=== PATIENT | male | born 1970 | race Caucasian/White ===

== ENCOUNTER 2017-05-18 17:39 | Inpatient (IN) | payer MEDICARE, OTHER ==
[~2017-05-18] VITALS: Ht 185.4 cm; Wt 123.2 kg
[~2017-05-18 17:39] MED LIST: CEPH250 PO; FISH1000 PO; GABA100C4 PO; METO100T PO; NEPHRO PO; SENS60TA PO; SEVEL800 PO; SIMV40TA PO; SLO-500T2 PO
[2017-05-18 18:38] VITALS: BP 122/87; PULSE 94; RESP 18; TEMP 98; O2SAT 99
[2017-05-18] MEDS ORDERED: SODIUM CHLOR 0.9% 1000 ML INJ 1,000 ML IV ONE (19:01)
[2017-05-18] MEDS ORDERED: LACTULOSE SYRUP 20 GM/30 ML CUP PO PRN (19:15)
[2017-05-18] MEDS ORDERED: SODIUM CHLORIDE 0.9% FLUSH 10 ML FLUSH IV FLUSH PRN (19:15)
[2017-05-18] MEDS ORDERED: ONDANSETRON HCL 4 MG/2 ML VIAL IVP PRN (19:15)
[2017-05-18] MEDS ORDERED: NALOXONE HCL 0.4 MG/ML AMP IV PUSH PRN (19:15)
[2017-05-18] MEDS ORDERED: ceFAZolin 2 GM PREMIX 50 ML IV SCH (19:15)
[2017-05-18] MEDS ORDERED: CUSTODIOL HTK IRR SOLN 2,000 ML IRRIGATION PRN (19:15)
[2017-05-18] MEDS ORDERED: ACETAMINOPHEN 325 MG TAB PO PRN (19:15)
[2017-05-18] MEDS ORDERED: BISACODYL 10 MG SUPP RECTAL PRN (19:15)
[2017-05-18] MEDS ORDERED: SENNOSIDES 8.6 MG TAB PO PRN (19:15)
--- NOTE | 2017-05-18 19:18 | HHI.HP ---
[facility] Service Transplant Medicine Primary Care Physician Harrison Walter MD, PhD Admission Diagnosis End-stage renal disease for kidney transplant Diagnoses: (1) ESRD (end stage renal disease) on dialysis Diagnosis: Principal Chief Complaint: Here for kidney transplant International Travel<30 Days: No Contact w/Intl Traveler<30days: No Known Affected Area: No History of Present Illness Patient is a 46-year-old white male with history of end-stage renal disease due to Alport syndrome getting hemodialysis on Tuesday, Tuesday and Tuesday he received his dialysis today for 4 and a half hours, he did well and denies any recent infections, cough, congestion, any skin breakdowns he has a AV fistula in the left forearm. He denies any chest pains, shortness of breath, he passes small amount of urine. He's been offered the kidney transplant and has accepted the risk associated with the transplant. Review of Systems Constitutional: DENIES: Diaphoretic episodes, Fatigue, Fever, Weight gain, Weight loss, Chills, Dizziness, Change in appetite, Night Sweats Endocrine: DENIES: Heat/cold intolerance, Polydipsia, Polyuria, Polyphagia Eyes: DENIES: Blurred vision, Diplopia, Eye inflammation, Eye pain, Vision loss , Photosensitivity, Double Vision Ears, nose, mouth, throat: COMPLAINS OF: Hearing loss, DENIES: Tinnitus, Vertigo, Nasal discharge, Oral lesions, Throat pain, Hoarseness, Ear Pain, Running Nose, Epistaxis, Sinus Pain, Toothache, Odynophagia Respiratory: DENIES: Apneas, Cough, Snoring, Wheezing, Hemoptysis, Sputum production, Shortness of breath Cardiovascular: DENIES: Chest pain, Palpitations, Syncope, Dyspnea on Exertion , PND, Lower Extremity Edema, Orthopnea, Claudication Gastrointestinal: DENIES: Abdominal pain, Black stools, Bloody stools, Constipation, Diarrhea, Nausea, Vomiting, Difficulty Swallowing, Anorexia Genitourinary: DENIES: Sexual dysfunction, Urinary frequency, Urinary incontinence, Urgency, Hematuria, Dysuria, Nocturia, Penile Discharge, Testicular Pain, Testicular Swelling Musculoskeletal: DENIES: Joint pain, Muscle aches, Stiffness, Joint Swelling, Back pain, Neck pain Integumentary: DENIES: Abnormal pigmentation, Nail changes, Pruritus, Rash Hematologic/lymphatic: DENIES: Bruising, Lymphadenopathy Immunologic/allergic: DENIES: Eczema, Urticaria Neurologic: DENIES: Abnormal gait, Headache, Localized weakness, Paresthesias, Seizures, Speech Problems, Tremor, Poor Balance Psychiatric: DENIES: Anxiety, Confusion, Mood changes, Depression, Hallucinations, Agitation, Suicidal Ideation, Homicidal Ideation, Delusions Past Family Social History Past Medical History Alport syndrome ESRD Hypertension Hyperlipidemia Past Surgical History He has AV fistulas left arm Kidney biopsy Reported Medications Reported Meds & Active Scripts Active Reported Gabapentin 100 Mg Cap 500 Mg PO TUE, TUE, TUE Nephro-Wei Rx (Vitamin B Complex/Vit C/Folic Acid) 1 Cap Tab 1 Cap PO DAILY Slo-Niacin (Niacin) 500 Mg Tab 500 Mg PO DAILY Gabapentin 100 Mg Cap 200 Mg PO TUE, , TUE, TUE Renvela (Sevelamer Carbonate) 800 Mg Tab 3,200 Mg PO TID *TAKE WITH MEALS* Sensipar 60 mg (Cinacalcet Hcl 60 mg) 60 Mg Tab 180 Mg PO DAILY Simvastatin 40 Mg Tab 40 Mg PO HS Fish Oil 1,000 Mg Cap 1,000 Mg PO BID Lopressor (Metoprolol Tartrate) 100 Mg Tab 25 Mg PO TUE, TUE, TUE Allergies: Coded Allergies: No Known Allergies (Verified , 01/31/12) Family History Noncontributory Social History Denies current smoking he used to smoke in the past but quit several years ago Denies any alcohol intake Physical Exam Vital Signs Vital Signs Date Time Temp Pulse Resp B/P (MAP) Pulse Ox O2 Delivery O2 Flow Rate FiO2 05/18/17 18:38 98.0 94 18 122/87 (99) 99 Physical Exam GENERAL: This is a well-nourished, well-developed patient, in no apparent distress. SKIN: No rashes, ecchymoses or lesions. Cool and dry. HEAD: Atraumatic. Normocephalic. No temporal or scalp tenderness. EYES: Pupils equal round and reactive. Extraocular motions intact. No scleral icterus. No injection or drainage. ENT: Nose without bleeding, purulent drainage or septal hematoma. Throat without erythema, tonsillar hypertrophy or exudate. Uvula midline. Airway patent. NECK: Trachea midline. No JVD or lymphadenopathy. Supple, nontender, no meningeal signs. CARDIOVASCULAR: Regular rate and rhythm without murmurs, gallops, or rubs. RESPIRATORY: Clear to auscultation. Breath sounds equal bilaterally. No wheezes , rales, or rhonchi. GASTROINTESTINAL: Abdomen soft, non-tender, nondistended. No hepato-splenomegaly , or palpable masses. No guarding. MUSCULOSKELETAL: Extremities without clubbing, cyanosis, or edema. No joint tenderness, effusion, or edema noted. No calf tenderness. Negative Homans sign bilaterally. A fistula left arm NEUROLOGICAL: Awake and alert. Cranial nerves II through XII intact. Motor and sensory grossly within normal limits. Five out of 5 muscle strength in all muscle groups. Normal speech. Caprini VTE Risk Assessment Caprini VTE Risk Assessment: No/Low Risk (score <= 1) VTE Pharm Contraindication: Caprini Risk Assessment Model Point Value = 1 Point Value = 2 Point Value = 3 Point Value = 5 Age 41-60 Minor surgery BMI > 25 kg/m2 Swollen legs Varicose veins or History of unexplained or recurrent spontaneous Oral contraceptives or hormone replacement Sepsis (< 1 month) Serious lung disease, including pneumonia (< 1 month) Abnormal pulmonary function Acute myocardial infarction Congestive heart failure (< 1 month) History of inflammatory bowel disease Medical patient at bed rest Age 61-74 Arthroscopic surgery Major open surgery (> 45 min) Laparoscopic surgery (> 45 min) Malignancy Confined to bed (> 72 hours) Immobilizing plaster cast Central venous access Age >= 75 History of VTE Family history of VTE Factor V Leiden Prothrombin [id number] Lupus anticoagulant Anticardiolipin antibodies Elevated serum homocysteine Heparin-induced thrombocytopenia Other congenital or acquired thrombophilia Stroke (< 1 month) Elective arthroplasty Hip, pelvis, or leg fracture Acute spinal cord injury (< 1 month) Prophylaxis Regimen Total Risk Factor Score Risk Level Prophylaxis Regimen 0-1 Low Early ambulation 2 Moderate Order ONE of the following: *Sequential Compression Device (SCD) *Heparin 5000 units SQ BID 3-4 Higher Order ONE of the following medications: *Heparin 5000 units SQ TID *Enoxaparin/Lovenox 40 mg SQ daily (WT < 150 kg, CrCl > 30 mL/min) *Enoxaparin/Lovenox 30 mg SQ daily (WT < 150 kg, CrCl > 10-29 mL/min) *Enoxaparin/Lovenox 30 mg SQ BID (WT < 150 kg, CrCl > 30 mL/min) AND/OR *Sequential Compression Device (SCD) 5 or more Highest Order ONE of the following medications: *Heparin 5000 units SQ TID (Preferred with Epidurals) *Enoxaparin/Lovenox 40 mg SQ daily (WT < 150 kg, CrCl > 30 mL/min) *Enoxaparin/Lovenox 30 mg SQ daily (WT < 150 kg, CrCl > 10-29 mL/min) *Enoxaparin/Lovenox 30 mg SQ BID (WT < 150 kg, CrCl > 30 mL/min) AND *Sequential Compression Device (SCD) Assessment and Plan Problem List: (1) ESRD (end stage renal disease) on dialysis ICD Codes: N18.6 - End stage renal disease; Z99.2 - Dependence on renal dialysis Status: Acute Plan: He is here for kidney transplant offer B positive pool He has been cleared for transplant and listed actively for several years He has no acute infections or contraindications Is waiting for final crossmatch and biopsy of the donor kidney I discuss again the process of transplant surgical aspect, posttransplant follow -up and he stated he is ready I will do CBC and other basic labs chest x-ray, order Thymoglobulin, Solu- Medrol for induction, He'll receive cefazolin on-call to OR He'll get 1 dose of CellCept 1000 mg tonight. Physician Certification 2 Midnight Certification Type: Admission for Inpatient Services Order for Inpatient Services The services are ordered in accordance with Medicare regulations or non- Medicare payer requirements, as applicable. In the case of services not specified as inpatient-only, they are appropriately provided as inpatient services in accordance with the 2-midnight benchmark. Estimated LOS (days): 5 5 days is the estimated time the patient will need to remain in the hospital, assuming treatment plan goals are met and no additional complications. Post-Hospital Plan: Home Gilmer Juarez MD May 18, 2017 19:18
[2017-05-18 19:30] VITALS: BP 150/89; PULSE 89; RESP 18; TEMP 98.4; O2SAT 98
[2017-05-18] MEDS ORDERED: MYCOPHENOLATE MOFETIL 500 MG TAB PO SCH (20:00)
[2017-05-18 20:25] LABS: ANION GAP 11 MEQ/L (5-15); AST (GOT) 11 U/L (15-37); BICARBONATE 21.6 MEQ/L (21.0-32.0); BLOOD UREA NITROGEN 34 MG/DL (7-18); CHLORIDE 102 MEQ/L (98-107); GLOMERULAR FILTRATION RATE 5 ML/MIN (>89); POTASSIUM 5.3 MEQ/L (3.5-5.1); SODIUM (NA) 135 MEQ/L (136-145)
[2017-05-18 20:26] LABS: ALT (GPT) 23 U/L (12-78)
[2017-05-18 20:28] LABS: ALKALINE PHOSPHATASE 173 U/L (45-117); TOTAL BILIRUBIN ADULT 0.5 MG/DL (0.2-1.0)
[2017-05-18 20:31] LABS: APTT (PATIENT) 26.4 SEC (24.3-30.1); PROTHROMBIN TIME - PATIENT 11.6 SEC (9.8-11.6)
[2017-05-18 20:38] LABS: AUTOMATED NEUTROPHIL # 6.8 TH/MM3 (1.8-7.7); BASOPHIL # 0.1 TH/MM3 (0-0.2); BASOPHIL % 0.5 % (0.0-2.0); EOSINOPHIL # 0.1 TH/MM3 (0-0.4); HEMATOCRIT 49.9 % (39.0-51.0); HEMO FLAGS DIFF FINAL; LYMPH % 18.5 % (9.0-44.0); LYMPHOCYTE # 1.9 TH/MM3 (1.0-4.8); MEAN CELL VOLUME 95.9 FL (80.0-100.0); MEAN CORPUSCULAR HEMOGLOBIN 31.1 PG (27.0-34.0); MEAN CORPUSCULAR HGB CONC 32.4 % (32.0-36.0); MONO % 12.1 % (0.0-8.0); NEUT % 67.9 % (16.0-70.0); PLATELET COUNT 150 TH/MM3 (150-450); RED BLOOD COUNT 5.21 MIL/MM3 (4.50-5.90); RED CELL DISTRIBUTION WIDTH 15.4 % (11.6-17.2); WHITE BLOOD COUNT 10.1 TH/MM3 (4.0-11.0)
--- NOTE | 2017-05-18 20:38 | RADRPT ---
EXAM DATE/TIME: 05/18/2017 19:59 [facility] COMPARISON: CHEST PA & LAT, February 24, 2012, 13:05. INDICATIONS : Evaluate for pneumothorax, pneumonia, or other communicable disease. MEDICAL HISTORY : None. SURGICAL HISTORY : None. ENCOUNTER: Initial ACUITY: 1 day PAIN SCORE: 0/10 LOCATION: Bilateral chest FINDINGS: PA and lateral views of the chest demonstrate the lungs to be symmetrically aerated without evidence of mass, infiltrate or effusion. The cardiomediastinal contours are unremarkable. Osseous structure s are intact. CONCLUSION: No acute disease. Dewayne Fraser MD on May 18, 2017 at 20:36 Board Certified Radiologist. This report was verified electronically.
[2017-05-18] MEDS: DOCUSATE SODIUM 50 MG/SENNA 8.6 MG TAB PO SCH (21:22)
[2017-05-18] MEDS: SODIUM CHLORIDE 0.9% FLUSH 10 ML FLUSH IV FLUSH SCH (21:22)
[2017-05-18 23:00] VITALS: BP 164/104; PULSE 86; RESP 17; TEMP 97.9; O2SAT 96
[2017-05-18] MEDS ORDERED: OMEP20TA PO (23:00)
[2017-05-18] MEDS ORDERED: MIDO10TA PO (23:02)
[2017-05-18] MEDS ORDERED: MELA5TAB15 PO (23:03)
[2017-05-18] MEDS ORDERED: DOCU100C PO (23:03)
[2017-05-18] MEDS ORDERED: SUCR5CHW CHEW (23:05)
[2017-05-18] MEDS ORDERED: RENATAB6 PO (23:06)
[2017-05-18] MEDS ORDERED: PROP10TA6 PO (23:06)
[2017-05-18] MEDS ORDERED: SODI650T PO (23:07)
[2017-05-18 23:30] VITALS: BP 130/58
[2017-05-19] VITALS (9 sets, daily range): BP systolic 130–150; BP diastolic 78–89; PULSE 79–96; RESP 16–22; TEMP 98–98.5; O2SAT 94–98
[2017-05-19] MEDS: ZOLPIDEM TARTRATE 5 MG TAB PO PRN (01:45)
[2017-05-19] MEDS ORDERED: HEPARIN SODIUM - SQ 10,000 UNITS/ML VIAL ONE ×2 (07:14→10:08)
[2017-05-19] MEDS ORDERED: diphenhydrAMINE HCL 50 MG/ML VIAL ONE (07:15)
[2017-05-19] MEDS ORDERED: LIDOCAINE HCL 2% 50 ML VIAL ONE (07:16)
[2017-05-19] MEDS ORDERED: BUPIVACAINE HCL PF 0.5% 30 ML VIAL ONE (07:17)
[2017-05-19] MEDS ORDERED: MORPHINE SULFATE 4 MG/ML INJ IV ONE (08:54)
[2017-05-19] MEDS ORDERED: ONDANSETRON HCL 4 MG/2 ML VIAL IV PUSH ONE (08:54)
[2017-05-19] MEDS ORDERED: ROCURONIUM INJ 50 MG/5 ML SYRINGE IV PUSH ONE (08:54)
[2017-05-19] MEDS ORDERED: PROPOFOL 200 MG/20 ML AMP IV ONE (08:54)
[2017-05-19] MEDS ORDERED: GLYCOPYRROLATE 1 MG/5 ML SYRINGE IV PUSH ONE (08:54)
[2017-05-19] MEDS ORDERED: LIDOCAINE HCL 1% PF 5 ML AMPULE OTHER ONE (08:54)
[2017-05-19] MEDS ORDERED: NEOSTIGMINE 3 MG/3 ML SYR IV ONE (08:54)
[2017-05-19] MEDS: DOCUSATE SODIUM 50 MG/SENNA 8.6 MG TAB PO SCH ×2 (09:00→22:20)
[2017-05-19] MEDS ORDERED: FUROSEMIDE 20 MG/2 ML VIAL ONE (09:07)
[2017-05-19] MEDS ORDERED: DOPamine INJ PREMIX 500 ML ONE (09:07)
[2017-05-19] MEDS ORDERED: methylPREDNISolone SOD SUCC 1000 MG/16 ML VIAL ONE (09:10)
[2017-05-19] MEDS ORDERED: FUROSEMIDE 100 MG/10 ML VIAL ONE (09:10)
[2017-05-19] MEDS ORDERED: MANNITOL INJ 50 ML ONE (09:11)
[2017-05-19] MEDS ORDERED: ALBUMIN HUMAN 5% 12.5 GM/250 ML BOTTLE IV ONE (09:28)
[2017-05-19] MEDS ORDERED: ANTITHYMOCYTE GLOB(RABBIT) INJ 150 MG in SODIUM CHLORID 0.9% 500 ML INJ 500 ML IV SCH (10:00)
[2017-05-19] MEDS ORDERED: ceFAZolin INJ 1,000 MG VIAL IRRIGATION ONE (11:35)
[2017-05-19] MEDS ORDERED: DO NOT ADM ANY ANTICOAGULANT DRUGS PRN (13:05)
[2017-05-19] MEDS ORDERED: MORPHINE SULFATE 30 MG/30 ML PCA IV SCH (13:15)
[2017-05-19] MEDS ORDERED: diphenhydrAMINE HCL 25 MG CAP PO PRN ×3 (13:15→16:30)
[2017-05-19] MEDS ORDERED: ONDANSETRON HCL 4 MG/2 ML VIAL IV PRN (13:15)
[2017-05-19] MEDS ORDERED: RESP: ALBUTEROL 2.5 MG/IPRATROPIUM 0.5 MG NEB (PRN) INH (13:15)
[2017-05-19] MEDS ORDERED: diphenhydrAMINE HCL 50 MG/ML VIAL IV PRN (13:15)
[2017-05-19] MEDS ORDERED: diphenhydrAMINE HCL 50 MG/ML VIAL IV PUSH PRN (13:15)
[2017-05-19] MEDS ORDERED: ONDANSETRON INJ 8 MG in DEXTROSE 5% IN WATER INJ 50 ML IV PRN ×2 (13:15)
[2017-05-19] MEDS ORDERED: OXYBUTYNIN CHLORIDE 5 MG TAB PO PRN (13:15)
[2017-05-19] MEDS ORDERED: NALOXONE HCL 0.4 MG/ML AMP IV PUSH PRN (13:15)
[2017-05-19] MEDS ORDERED: LABETALOL HCL 100 MG/20 ML VIAL IV PUSH PRN (13:15)
[2017-05-19] MEDS ORDERED: *MEPERIDINE 25 MG INJ VIAL PERIprocedural Use ONLY ONE (13:23)
[2017-05-19] MEDS ORDERED: *LABETALOL HCL 100 MG/20 ML VIAL PERIprocedural Use ONLY ONE (13:23)
[2017-05-19] MEDS ORDERED: *RESP: ALBUTEROL 2.5 MG/3 ML NEB (PRN) PERIprocedural Use ONLY NEB ONE (13:26)
[2017-05-19] MEDS: SODIUM CHLORIDE 0.9% FLUSH 10 ML FLUSH IV FLUSH SCH ×2 (13:49→21:00)
[2017-05-19] MEDS ORDERED: LABETALOL HCL 20 MG/4 ML VIAL IV PRN (14:15)
[2017-05-19] MEDS ORDERED: SODIUM CHLOR 0.9% 1000 ML INJ 1,000 ML IV SCH (14:15)
--- NOTE | 2017-05-19 14:18 | RADRPT ---
EXAM DATE/TIME: 05/19/2017 13:45 [facility] COMPARISON: CHEST PA & LAT, May 18, 2017, 19:59. INDICATIONS : Line placement. MEDICAL HISTORY : None. SURGICAL HISTORY : None. ENCOUNTER: Subsequent ACUITY: 1 day PAIN SCORE: Non-responsive. LOCATION: Bilateral chest FINDINGS: A single view of the chest demonstrates right central line in superior vena cava. Cardiomegaly. Basil ar and perihilar airspace disease. No significant effusion. No pneumothorax. CONCLUSION: 1. Right central line in superior vena cava without pneumothorax. Cardiomegaly with mild bilateral ai r space disease and dependent atelectasis. No significant effusion. Ignacio Mcdaniel MD on May 19, 2017 at 14:16 Board Certified Radiologist. This report was verified electronically.
[2017-05-19] MEDS ORDERED: THYMOGLOBULIN ANAPYLAXIS KIT MISC XX PRN (14:30)
--- NOTE | 2017-05-19 14:38 | PD.OP ---
Operative Report Date of Surgery: May 19, 2017 Preoperative Diagnosis: (1) ESRD (end stage renal disease) on dialysis Postoperative Diagnosis: (1) Transplant recipient Procedure: kidney transplant Anesthesia: GET Surgeon: Gio Bradshaw Head Teacher(s): Dewayne Rainey MD Operation and Findings: PREOPERATIVE DIAGNOSIS: End-stage renal disease and desire for renal transplant. POSTOPERATIVE DIAGNOSIS: Renal Transplant donor to right iliac fossa OPERATION PERFORMED: 1. Renal transplant to the right iliac fossa 2. Back bench preparation of the donor graft. 3. Placement of ureteral stent. 4. Back bench venous reconstruction of renal allograft INDICATIONS: Mr. Gonzales is a 46 year-old who has end stage renal disease due to Alport's and wishes to have a kidney transplant. He has been on HD for many years with minimum UOP. He was thoroughly evaluated in our clinic and was found to be an adequate candidate for transplant surgery. The patient understood his risks and agrees to undergo the operation and required usp immunosuppression medication. PROCEDURE: After informed consent was obtained from the patient prior to surgery and an increased risk PHS form was signed, and the ABO was reviewed via primary source times two for each the recipient and donor prior to surgery today , the recipient was brought into the OR and safely placed under general endotracheal anesthesia after the debriefing was performed. The ABO verification form was in the room with the patient and the renal allograft. The [employer] file was checked and the donor ABO verified X 2 and recorded onto the ABO form with the Candidate ABO verified X 2 in EPIC and recorded on the ABO verification form. The candidate's name was seen on the match run in [employer]Net. The donor blood type was B and the recipient blood type B. As the anesthesia service was preparing the patient, I prepared the renal allograft on the back table by removing all extraneous connective tissue. There were two arteries on a common Carrel Cuff, single vein and single ureter of sufficient length. Since this was a right kidney, the cephalad and caudal cava was stabled. The kidney was stored in sterile ice with preservative solution and covered with sterile towel. The patient had a Barrios catheter placed sterilely, and the abdomen was prepped and draped in the usual sterile fashion. We then did our standard surgical time out, reviewing the patient, allergies, antibiotics, operation to be performed, immunosuppression medications and ABO of the donor and recipient. All agreed and we proceeded. The anesthesia service acknowledged the administration of the IV Solumedrol 250 mg and Thymoglobulin infusiton was begun. We then made the right lower quadrant oblique incision from an area about two centimeters medial to the anterior iliac spine to the pubic symphysis. We were able to go through the skin, subcutaneous tissue, fascia, and into the right retroperitoneal space. We were able to stay out of the peritoneum throughout the entire operation. We kept the cord structures mobilized out of harm's way. We spared the epigastric vessels. We had excellent exposure of the external iliac artery and vein and carefully dissected these free of the nerve, keeping this lateral and out of harm's way. The vessels felt of very good caliber, and there was no obvious abnormality in the vein or the artery. We gave the patient 2,000 units of intravenous heparin, allowed this to circulate for three minutes. We used a Satinsky clamp on the iliac vein and opened the vein with the 11-blade, Hendrix scissors, and Hepflush. We anastomosed the donor renal vein to the recipient right external iliac vein using 5-0 Prolene in our four-quadrant standard technique. When this venous anastomosis was completed, we went ahead and placed a bull-dog vascular clamp on the proximal and distal right external iliac artery, opened into the iliac artery with the 11-blade. Tonotomy scissors were used to remove a bit of sidewall from the artery, so we had a nice opening of the anterior artery wall to accept the renal artery. Then we used 6-0 Prolene, placing a cephalad stitch , and then we were able to anastomose the arteries under direct visualization in a continuous open fashion. When the arterial anastomosis was complete and tied, we went ahead and placed gentle vascular bull-dog clamps on the renal artery and renal vein proper, where we removed first the iliac vein clamps and allowed for flow across the venous anastomosis, and there was with excellent hemostasis. We then allowed for the distal artery to open. The anastomotic area opened nicely, signifying no technical issues. We then allowed for forward flow from the artery down the leg. There was excellent flow, again with no need for any suture repair across the anastomosis. We then removed the clamps from the renal artery and vein proper, allowed for flow into and out of the kidney, placed warm irrigation all around the kidney to allow it to go ahead and vasodilate nicely, and there was no need for any suture repairs. Hemostasis was obtained by the use of clips or ties as necessary. Electrocautery was used on the capsule as necessary. The kidney pinked up nicely. The patient was given our standard mannitol 12.5 gm as well as Lasix 100 mg IV and the second dose of Solumedrol 250 mg IV prior to reperfusion of the allograft. He tolerated this well. We then went ahead and placed the kidney into the right OR left iliac fossa. It laid nicely and had good color. We then repositioned our Bookwalter retractor and had good exposure of the bladder. The antibiotic irrigant was flushed into the bladder. The bladder distended very nicely into our field. We were able to safely enter into the bladder, place our stay sutures of 3-0 silk, and then went ahead and allowed for the fluid to empty out of the bladder. We then made sure the ureter laid in its correct position. We opened opposite its blood supply with the tenotomy scissors. We shortened it to the appropriate length and then we did our standard jeannette-ureterocystotomy using 5-0 PDS suture in a running technique. We did place a ureteral stent into the transplant ureter into the collecting system and it laid nicely and then into the bladder. When this was completed we placed two Lembert type sutures of 5-0 PDS. We tied these over a right angle so as not to obstruct. We had good hemostasis. We irrigated again with antibiotic solution. Again the kidney laid nicely in the right OR left iliac fossa. The vessels were laying nicely, with no signs of any obstruction either inflow or outflow. We went ahead and did the count as we prepared to close the fascia. The count was correct. We went ahead and closed the fascia with running #1 PDS suture starting from each end of the wound and tying in the middle. We used some 3-0 Vicryl to reapproximate Bentley's in an interrupted fashion. We then used surgical nacho to approximate the skin. We had final instrument and sponge counts correct times two. Our warm ischemia time was about 48 minutes. The cold time was about 15 hours and 50 minutes, most of that on the pulsatile pump. It should be noted that I was scrubbed during the entire operation as was Dr. Rainey as automobile mechanic assistant. ESTIMATED BLOOD LOSS: Minimal, less than 100 mL. BLOOD TRANSFUSIONS: 500 cc 5% albumin SPECIMENS: None. FLUIDS: Approximately 3.2 liters of fluid. COMPLICATIONS: None. Gio Bradshaw MD May 19, 2017 14:38
[2017-05-19 14:40] LABS: AUTOMATED NEUTROPHIL # 11.2 TH/MM3 (1.8-7.7); BASOPHIL # 0.1 TH/MM3 (0-0.2); HEMATOCRIT 44.2 % (39.0-51.0); HEMO FLAGS DIFF FINAL; LYMPH % 0.4 % (9.0-44.0); LYMPHOCYTE # 0.1 TH/MM3 (1.0-4.8); MEAN CELL VOLUME 96.9 FL (80.0-100.0); MEAN CORPUSCULAR HEMOGLOBIN 30.7 PG (27.0-34.0); MEAN CORPUSCULAR HGB CONC 31.7 % (32.0-36.0); MONO % 2.8 % (0.0-8.0); NEUT % 95.8 % (16.0-70.0); PLATELET COUNT 100 TH/MM3 (150-450); RED BLOOD COUNT 4.56 MIL/MM3 (4.50-5.90); RED CELL DISTRIBUTION WIDTH 15.5 % (11.6-17.2); WHITE BLOOD COUNT 11.7 TH/MM3 (4.0-11.0)
--- NOTE | 2017-05-19 14:50 | HHI.NPPN ---
Subjective History of Present Illness 46 year old with ESRD admitted for Kidney Transplant Interval History kidney Transplant 05/19/17 Additional Remarks seen PACU Objective Data Data 05/19/17 05/20/17 19:00 07:00 Intake Total 4270 ml Output Total 110 ml Balance 4160 ml IV Total 570 ml Other 3700 ml Output Urine Total 10 ml Estimated Blood Loss 100 ml Vital Signs Date Time Temp Pulse Resp B/P (MAP) Pulse Ox O2 Delivery O2 Flow Rate FiO2 05/19/17 14:00 80 22 141/77 (98) 94 Nasal Cannula 5 05/19/17 13:45 81 21 147/75 (99) 93 Nasal Cannula 5 05/19/17 13:30 75 18 142/77 (98) 92 Nasal Cannula 5 05/19/17 13:15 87 21 157/91 (113) 95 Nasal Cannula 5 05/19/17 13:00 98.3 87 17 143/85 (104) 91 Simple Mask 10 05/19/17 07:15 98.3 79 16 149/88 (108) 96 05/19/17 03:45 98.0 80 18 150/89 (109) 98 05/18/17 23:30 130/58 (82) 05/18/17 23:00 97.9 86 17 164/104 (124) 96 05/18/17 19:30 98.4 89 18 150/89 (109) 98 05/18/17 18:38 98.0 94 18 122/87 (99) 99 -: 05/18/17194805/18/171948 Physical Exam General Appearance: Well Developed, Well Nourished Neck Neck Exam: Neck Supple Pulmonary Resp Exam: Clear Bilaterally, Breath Sounds Equal Cardiology CV Exam: Regular, Normal Sinus Rhythm Gastrointestinal/Abdomen GI Exam: Soft GI Remarks inciaion covered with dressing rt lower abdomen Genitourinary Exam: Sediment Remarks blood tinged urine Integumentary Skin Exam: Clear Extremeties Extremities Exam: No Edema Neurologic Neuro Exam: Sedated Assessment/Plan Problem List: (1) Transplant recipient ICD Codes: Z94.89 - Other transplanted organ and tissue status Plan: he received SoluMedrol and Thymoglobulin continue with Thymoglobulin Prograf to start tomorrow on CellCept continue to observe for recovery follow labs UOP minimal BP stable will follow as use PRN medication if a need arise 1630 [facility] reported K 6.9, post transplant, treated with 1 amp NaHCO3 and Kayexalate I made dialysis nurse aware, he may need dialysis if repeat K is high. Which is going to be at 5 PM. 1840 Seen during dialysis UF minimal 0 K bath Gilmer Juarez MD May 19, 2017 14:49
[2017-05-19] MEDS: DEXT 5%-NACL 0.45% 1000 ML INJ 1,000 ML IV SCH (15:00)
[2017-05-19 15:11] LABS: BICARBONATE 21.6 MEQ/L (21.0-32.0); MAGNESIUM 1.9 MG/DL (1.5-2.5)
[2017-05-19] MEDS ORDERED: HYDROCORTISONE SOD SUCCINATE 100 MG VIAL ONE (15:36)
[2017-05-19] MEDS: SODIUM CHLOR 0.45% 1000 ML INJ 1,000 ML IV SCH (15:39)
[2017-05-19 16:02] LABS: POTASSIUM 6.9 MEQ/L (3.5-5.1)
[2017-05-19] MEDS ORDERED: SODIUM POLYSTYRENE SULFONATE SUSP 15 GM/60 ML CUP PO STA (16:08)
--- NOTE | 2017-05-19 16:13 | RADRPT ---
EXAM DATE/TIME: 05/19/2017 14:43 [facility] COMPARISON: No previous studies available for comparison. INDICATIONS : Post transplant, two renal arteries. MEDICAL HISTORY : Hypertension. ESRD. Dialysis. Alport syndrome. Dialysis. SURGICAL HISTORY : Left arm AV fistula. ENCOUNTER: Initial ACUITY: 1 day PAIN SCORE: Nonresponsive. LOCATION: Right lower quadrant MEASUREMENTS: TRANSPLANT KIDNEY: 11.5 x 6.3 x 6.2 cm LOCATION: Right lower quadrant. ARCUATE ARTERIES RESISTIVE INDEX: Upper - 0.56 Mid - 0.57 Lower - 0.64 MAIN RENAL ARTERY VELOCITY: (cm/sec): 41.0 cm/s upper pole artery. 61.7 cm/s lower pole artery MAIN RENAL VEIN: Patent EXTERNAL ILIAC ARTERY VELOCITY (cm/sec): 82.3 cm/s * NORMAL DOPPLER FINDINGS Arcuate arteries - RI = 0.6 - 0.8 Renal artery = under 200 cm/sec Renal vein = May be monophasic with continuous flow or demonstrate some pulsatility with cardiac cycl e FINDINGS: TRANSPLANT KIDNEY: Normal cortical thickness and echotexture. No hydronephrosis, stone, or mass. No peritransplant flu id collection. URINARY BLADDER: Within normal limits given the degree of distension. CONCLUSION: 1. Normal sonographic appearance of transplant kidney. Ignacio Mcdaniel MD on May 19, 2017 at 16:10 Board Certified Radiologist. This report was verified electronically.
[2017-05-19] MEDS ORDERED: SODIUM BICARBONATE 8.4% INJ 50 MEQ/50 ML SYR IV PUSH STA (16:14)
[2017-05-19] MEDS ORDERED: SODIUM CHLOR 0.9% 1000 ML INJ 1,000 ML IV PRN (16:29)
[2017-05-19] MEDS ORDERED: SODIUM CHLOR 0.9% 1000 ML INJ 1,000 ML OTHER PRN ×2 (16:29)
[2017-05-19] MEDS ORDERED: cloNIDine HCL 0.1 MG TAB PO PRN (16:30)
[2017-05-19] MEDS ORDERED: NITROGLYCERIN 0.4 MG SL 25 TABS/BTL SL PRN (16:30)
[2017-05-19] MEDS ORDERED: SODIUM CHLORIDE 0.9% FLUSH 10 ML FLUSH IV FLUSH PRN (16:30)
[2017-05-19] MEDS ORDERED: FUROSEMIDE 100 MG/10 ML VIAL IV PUSH ONE (16:30)
[2017-05-19] MEDS ORDERED: GELATIN 12 MM/7 MM FOAM TOP PRN (16:30)
[2017-05-19] MEDS ORDERED: MANNITOL 12.5 GM/50 ML VIAL IV PRN (16:30)
[2017-05-19] MEDS ORDERED: ACETAMINOPHEN 325 MG TAB PO PRN (16:30)
[2017-05-19] MEDS ORDERED: ALBUMIN HUMAN 25% 25 GM/100 ML BAGP IV PRN (16:30)
[2017-05-19] MEDS ORDERED: ONDANSETRON HCL 4 MG/2 ML VIAL IV PUSH PRN (16:30)
[2017-05-19] MEDS ORDERED: CALCIUM GLUCONATE 10% 1 GM/10 ML VIAL IV PUSH ONE (16:45)
[2017-05-19] MEDS ORDERED: DEXTROSE 50% IN WATER 50 ML VIAL(D50) IV PUSH ONE (16:45)
[2017-05-19] MEDS ORDERED: INSULIN HUMAN REGULAR 1,000 UNITS/10 ML VIAL IV PUSH ONE (16:45)
--- NOTE | 2017-05-19 17:23 | EKG ---
Date Performed: 05/18/2017 Time Performed: 21:52:10 PTAGE: 46 years EKG: Sinus rhythm Normal ECG PREVIOUS TRACING : 06/10/2011 10.21 Compared to prior tracing no significant change DOCTOR: Rajendra Mckee Interpretating Date/Time 05/19/2017 17:22:06
[2017-05-19] MEDS ORDERED: DEXTROSE 50% IN WATER 50 ML SYRINGE IV PUSH ONE (17:30)
--- NOTE | 2017-05-19 17:35 | HHI.PR ---
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 Objective Vital Signs Date Time Temp Pulse Resp B/P (MAP) Pulse Ox O2 Delivery O2 Flow Rate FiO2 05/19/17 15:46 95 Nasal Cannula 2.00 05/19/17 15:38 15 05/19/17 15:15 98.5 84 17 142/86 (104) 96 Nasal Cannula 4 05/19/17 15:00 80 19 146/79 (101) 96 Nasal Cannula 4 05/19/17 14:45 83 20 142/80 (100) 96 Nasal Cannula 4 05/19/17 14:30 75 19 140/79 (99) 96 Nasal Cannula 4 05/19/17 14:15 81 22 135/74 (94) 96 Nasal Cannula 4 05/19/17 14:00 80 22 141/77 (98) 94 Nasal Cannula 5 05/19/17 13:45 81 21 147/75 (99) 93 Nasal Cannula 5 05/19/17 13:30 75 18 142/77 (98) 92 Nasal Cannula 5 05/19/17 13:15 87 21 157/91 (113) 95 Nasal Cannula 5 05/19/17 13:00 98.3 87 17 143/85 (104) 91 Simple Mask 10 05/19/17 07:15 98.3 79 16 149/88 (108) 96 05/19/17 03:45 98.0 80 18 150/89 (109) 98 05/18/17 23:30 130/58 (82) 05/18/17 23:00 97.9 86 17 164/104 (124) 96 05/18/17 19:30 98.4 89 18 150/89 (109) 98 05/18/17 18:38 98.0 94 18 122/87 (99) 99 I/O 05/18/17 05/18/17 05/18/17 05/19/17 05/19/17 05/19/17 07:00 15:00 23:00 07:00 15:00 23:00 Intake Total 240 ml 4350 ml Output Total 420 ml Balance 240 ml 3930 ml Intake Oral 240 ml IV Total 650 ml Other 3700 ml Output Urine Total 320 ml Estimated Blood Loss 100 ml Result Diagram: 05/19/17 1421 05/19/17 1421 Imaging Transplant duplex US good CXR w CL in place, no PTX Other Results repeat K pending Objective Remarks small volume renal graft output Medications and IVs NS at 40 cc/hr and urine output replacement Q1hr Assessment and Plan Assessment and Plan hemodynamically stable NOS, but hyperkalemia Kayexalate 30 gms and bicarb 50 meq given, repeat K pending Dr. Juarez is following repeat K for possible HD tonight. Patient runs a high K at baseline, but this is much higher for uncertain reason as no blood transfusion Physician Attestation Venkat Bradshaw 17:20 Gio Bradshaw MD May 19, 2017 17:35
[2017-05-19] MEDS: MYCOPHENOLATE MOFETIL 500 MG TAB PO SCH (17:58)
[2017-05-19] MEDS: PCA - TOTAL MG MORPHINE DELIVERED PER SHIFT IV SCH (22:00)
[2017-05-19] MEDS: NYSTATIN SUSP 500,000 U/5 ML CUP SWISH-SWAL SCH (22:19)
[2017-05-20] VITALS (12 sets, daily range): BP systolic 135–149; BP diastolic 69–86; PULSE 16–83; RESP 16–18; TEMP 97.6–98.5; O2SAT 93–96
[2017-05-20] MEDS: ZOLPIDEM TARTRATE 5 MG TAB PO PRN ×2 (00:09→22:09)
[2017-05-20] MEDS ORDERED: BUMETANIDE INJ 1 MG/4 ML VIAL IV PUSH ONE (00:30)
[2017-05-20 05:11] LABS: AUTOMATED NEUTROPHIL # 10.4 TH/MM3 (1.8-7.7); BASOPHIL % 0.2 % (0.0-2.0); HEMATOCRIT 40.1 % (39.0-51.0); LYMPH % 0.8 % (9.0-44.0); LYMPHOCYTE # 0.1 TH/MM3 (1.0-4.8); MEAN CELL VOLUME 96.7 FL (80.0-100.0); MEAN CORPUSCULAR HEMOGLOBIN 30.9 PG (27.0-34.0); MEAN CORPUSCULAR HGB CONC 31.9 % (32.0-36.0); MONO % 6.5 % (0.0-8.0); NEUT % 92.5 % (16.0-70.0); PLATELET COUNT 119 TH/MM3 (150-450); RED BLOOD COUNT 4.14 MIL/MM3 (4.50-5.90); RED CELL DISTRIBUTION WIDTH 15.6 % (11.6-17.2); WHITE BLOOD COUNT 11.2 TH/MM3 (4.0-11.0)
[2017-05-20 05:13] LABS: BICARBONATE 27.3 MEQ/L (21.0-32.0); HEMO FLAGS AUTO DIFF; MAGNESIUM 1.9 MG/DL (1.5-2.5); POTASSIUM 5.2 MEQ/L (3.5-5.1)
[2017-05-20] MEDS: PCA - TOTAL MG MORPHINE DELIVERED PER SHIFT IV SCH ×3 (05:29→22:00)
[2017-05-20] MEDS: MYCOPHENOLATE MOFETIL 500 MG TAB PO SCH ×2 (05:40→18:27)
[2017-05-20 06:51] LABS: PLATELET ESTIMATE SMEAR LOW (NORMAL); PLATELET MORPHOLOGY NORMAL (NORMAL); SCAN/DIFF AUTO DIFF CONFIRMED
[2017-05-20] MEDS ORDERED: TACROLIMUS 1 MG CAP PO SCH (08:00)
[2017-05-20] MEDS ORDERED: SODIUM POLYSTYRENE SULFONATE SUSP 15 GM/60 ML CUP PO ONE (09:00)
[2017-05-20] MEDS: FLUTICASONE PROPIONATE 50 MCG/ACT 16 GM NASAL SPRAY NASAL SCH ×2 (09:00→21:01)
[2017-05-20] MEDS: SODIUM CHLOR 0.45% 1000 ML INJ 1,000 ML IV SCH (09:04)
[2017-05-20] MEDS: DEXT 5%-NACL 0.45% 1000 ML INJ 1,000 ML IV SCH (09:06)
--- NOTE | 2017-05-20 09:13 | HHI.PR ---
Subjective Remarks comfortable with [employer] post-transplant Very alert and without complaints except minor bladder spasm with winter. He was instructed he can ask for medications to help with that, but he needs to tell nurse. Objective Vital Signs Date Time Temp Pulse Resp B/P (MAP) Pulse Ox O2 Delivery O2 Flow Rate FiO2 05/20/17 08:14 98.4 67 16 149/83 (105) 93 05/20/17 07:07 74 05/20/17 05:29 18 05/20/17 03:00 70 05/20/17 03:00 98.4 72 18 138/69 (92) 96 05/19/17 23:05 98.5 90 18 145/85 (105) 96 05/19/17 23:00 80 05/19/17 22:00 18 05/19/17 21:30 Nasal Cannula 2.00 05/19/17 19:00 88 05/19/17 18:09 85 20 130/78 (95) 96 05/19/17 17:50 98.2 96 20 147/78 (101) 97 05/19/17 16:00 22 05/19/17 15:46 95 Nasal Cannula 2.00 05/19/17 15:38 15 05/19/17 15:30 82 05/19/17 15:30 98.1 80 22 137/81 (99) 94 05/19/17 15:15 98.5 84 17 142/86 (104) 96 Nasal Cannula 4 05/19/17 15:00 80 19 146/79 (101) 96 Nasal Cannula 4 05/19/17 14:45 83 20 142/80 (100) 96 Nasal Cannula 4 05/19/17 14:30 75 19 140/79 (99) 96 Nasal Cannula 4 05/19/17 14:15 81 22 135/74 (94) 96 Nasal Cannula 4 05/19/17 14:00 80 22 141/77 (98) 94 Nasal Cannula 5 05/19/17 13:45 81 21 147/75 (99) 93 Nasal Cannula 5 05/19/17 13:30 75 18 142/77 (98) 92 Nasal Cannula 5 05/19/17 13:15 87 21 157/91 (113) 95 Nasal Cannula 5 05/19/17 13:00 98.3 87 17 143/85 (104) 91 Simple Mask 10 I/O 905/19/17 05/19/17 05/20/17 05/20/17 05/20/17 07:00 15:00 23:00 07:00 15:00 23:00 Intake Total 240 ml 4350 ml Output Total 420 ml Balance 240 ml 3930 ml Intake Oral 240 ml IV Total 650 ml Other 3700 ml Output Urine Total 320 ml Estimated Blood Loss 100 ml Result Diagram: 05/20/1744105/20/17441 Imaging Renal Duplex yesterday with good arterial flows, venous flow questionable with cardiac cycle, so rechecking today and checking ECHO for possible pulmonary HTN , pt is on chronic CPAP for VAN also Objective Remarks About 425 UOP overnight. Aiming for better hourly records today Medications and IVs Decrease MIV to 40 ml/hr decrease replacment for UOP > 100, 1/2 cc per cc May drop more this afternoon if he takes oral fluids well today Assessment and Plan Assessment and Plan Hemodynamically last night, hyperkalemia treated with HD last night Another dose of Kayexalate 30 gms ordered for this morning Dr. Juarez is following repeat K for possible HD as needed. Patient runs a high K at baseline, but this is much higher for uncertain reason as no blood transfusions and no K containing meds Starting oral liquids for breakfast and lunch, may advance to solids for dinner if doing well IS meds today: Cont MMF 1000 bid SM taper with Thymo as pre-med Delaying tac due to slow graft function Discussed Condition With patient and his two parents at bedside Discharge Planning Coordinators seeing patients now Physician Attestation I examined patient this morning and discussed the plan with him and his parents with the multidisciplinary transplant team present at bedside Gio Bradshaw MD May 20, 2017 09:13
[2017-05-20] MEDS ORDERED: ACETAMINOPHEN 325 MG TAB PO ONE (09:30)
[2017-05-20] MEDS ORDERED: diphenhydrAMINE HCL 50 MG CAP PO ONE (09:30)
[2017-05-20] MEDS ORDERED: methylPREDNISolone SOD SUCC 125 MG/2 ML VIAL IV PUSH ONE ×2 (09:30)
[2017-05-20] MEDS ORDERED: FUROSEMIDE 100 MG/10 ML VIAL IV PUSH ONE (09:30)
[2017-05-20] MEDS ORDERED: ANTITHYMOCYTE GLOB IV-CENTRAL ONE (10:00)
[2017-05-20] MEDS ORDERED: SODIUM CHLORID 0.9% IV-CENTRAL ONE (10:00)
[2017-05-20] MEDS ORDERED: methylPREDNISolone SOD SUCC 125 MG/2 ML VIAL OTHER ONE (10:00)
[2017-05-20] MEDS: NYSTATIN SUSP 500,000 U/5 ML CUP SWISH-SWAL SCH ×3 (10:10→21:01)
[2017-05-20] MEDS: SULFAMETHOXAZOLE-TRIMETHOPRIM DS 800-160 MG TAB PO SCH (10:11)
[2017-05-20] MEDS: ASPIRIN 81 MG CHEW TAB PO SCH (10:11)
[2017-05-20] MEDS: DOCUSATE SODIUM 100 MG CAP PO SCH ×2 (10:11→21:01)
[2017-05-20] MEDS: DOCUSATE SODIUM 50 MG/SENNA 8.6 MG TAB PO SCH ×2 (10:12→21:01)
[2017-05-20] MEDS: METOPROLOL TARTRATE 25 MG TAB PO SCH ×2 (10:12→21:01)
[2017-05-20] MEDS: SODIUM CHLORIDE 0.9% FLUSH 10 ML FLUSH IV FLUSH SCH ×2 (10:13→21:00)
--- NOTE | 2017-05-20 12:01 | HHI.NPPN ---
Subjective History of Present Illness 46 year old with ESRD admitted for Kidney Transplant Additional Remarks doing well post op day 1 Objective Data Data 05/20/17 05/21/17 19:00 07:00 Intake Total 678 ml Output Total 318 ml Balance 360 ml IV Total 678 ml Output Urine Total 318 ml Vital Signs Date Time Temp Pulse Resp B/P (MAP) Pulse Ox O2 Delivery O2 Flow Rate FiO2 05/20/17 11:03 69 145/84 (104) 05/20/17 11:02 98.5 69 18 145/84 (104) 94 05/20/17 08:14 98.4 67 16 149/83 (105) 93 05/20/17 07:07 74 05/20/17 05:29 18 05/20/17 03:00 70 05/20/17 03:00 98.4 72 18 138/69 (92) 96 05/19/17 23:05 98.5 90 18 145/85 (105) 96 05/19/17 23:00 80 05/19/17 22:00 18 05/19/17 21:30 Nasal Cannula 2.00 05/19/17 19:00 88 05/19/17 18:09 85 20 130/78 (95) 96 05/19/17 17:50 98.2 96 20 147/78 (101) 97 05/19/17 16:00 22 05/19/17 15:46 95 Nasal Cannula 2.00 05/19/17 15:38 15 05/19/17 15:30 82 05/19/17 15:30 98.1 80 22 137/81 (99) 94 05/19/17 15:15 98.5 84 17 142/86 (104) 96 Nasal Cannula 4 05/19/17 15:00 80 19 146/79 (101) 96 Nasal Cannula 4 05/19/17 14:45 83 20 142/80 (100) 96 Nasal Cannula 4 05/19/17 14:30 75 19 140/79 (99) 96 Nasal Cannula 4 05/19/17 14:15 81 22 135/74 (94) 96 Nasal Cannula 4 05/19/17 14:00 80 22 141/77 (98) 94 Nasal Cannula 5 05/19/17 13:45 81 21 147/75 (99) 93 Nasal Cannula 5 05/19/17 13:30 75 18 142/77 (98) 92 Nasal Cannula 5 05/19/17 13:15 87 21 157/91 (113) 95 Nasal Cannula 5 05/19/17 13:00 98.3 87 17 143/85 (104) 91 Simple Mask 10 -: 05/20/17 0442 05/20/17 044 Physical Exam General Appearance: Well Developed, Well Nourished Neck Neck Exam: Neck Supple Pulmonary Resp Exam: Clear Bilaterally, Breath Sounds Equal Cardiology CV Exam: Regular, Normal Sinus Rhythm Gastrointestinal/Abdomen GI Exam: Soft GI Remarks incision clean Genitourinary Exam: Sediment Remarks blood tinged urine Integumentary Skin Exam: Clear Extremeties Extremities Exam: Trace Edema Neurologic Neuro Exam: Sedated Assessment/Plan Problem List: (1) Transplant recipient ICD Codes: Z94.89 - Other transplanted organ and tissue status Plan: he received SoluMedrol and Thymoglobulin continue with Thymoglobulin 2nd dose today will get 3rd dose on 05/21 Prograf held on CellCept continue to observe for recovery follow labs UOP minimal BP stable will follow as use PRN medication if a need arise doing better gradual increase in UOP DGF,UOP improving K 5.2 continue to monitor given Kayexalate Gilmer Juarez MD May 20, 2017 12:01
--- NOTE | 2017-05-20 12:29 | RADRPT ---
EXAM DATE/TIME: 05/20/2017 09:02 [facility] COMPARISON: US KIDNEY / TRANSPLANT, May 19, 2017, 14:43. INDICATIONS : One day post transplant, two renal arteries. MEDICAL HISTORY : Hypertension. ESRD. Dialysis. Alport syndrome. Dialysis. SURGICAL HISTORY : Renal transplant 05/19/17. Left arm AV fistula. ENCOUNTER: Subsequent ACUITY: 1 day PAIN SCORE: LOCATION: Right lower quadrant MEASUREMENTS: TRANSPLANT KIDNEY: 12.2 x 6.7 x 6.6 cm LOCATION: Right lower quadrant. PREVIOUS ULTRASOUND: May 19 2017. PREVIOUS ARCUATE ARTERIES INDEX: Upper - 0.56 Mid - 0.57 Lower - 0.64 ARCUATE ARTERIES RESISTIVE INDEX: Upper - 0.6 Mid - 0.6 Lower - 0.6 RA/EIA Ratio: 0.6 MAIN RENAL ARTERY VELOCITY: (cm/sec): 137 cm/s lower pole artery. 78 cm/s upper pole artery. MAIN RENAL VEIN: Patent EXTERNAL ILIAC ARTERY VELOCITY (cm/sec): 237 cm.s * NORMAL DOPPLER FINDINGS Arcuate arteries - RI = 0.6 - 0.8 Renal artery = under 200 cm/sec Renal vein = May be monophasic with continuous flow or demonstrate some pulsatility with cardiac cycl e FINDINGS: TRANSPLANT KIDNEY: Normal cortical thickness and echotexture. No hydronephrosis, stone, or mass. No peritransplant flu id collection. URINARY BLADDER: Within normal limits given the degree of distension. CONCLUSION: 1. Normal post transplant ultrasound. 2. Of note, there are 2 renal arteries. Both the anastomoses were visualized. Carlos Eden MD on May 20, 2017 at 12:27 Board Certified Radiologist. This report was verified electronically.
[2017-05-20] MEDS: PANTOPRAZOLE SOD 40 MG DELAYED RELEASE TAB PO SCH (12:59)
[2017-05-20] MEDS ORDERED: SODIUM CHLOR 0.45% 1000 ML INJ 1,000 ML IV SCH (13:12)
[2017-05-20 16:39] LABS: BICARBONATE 22.6 MEQ/L (21.0-32.0); POTASSIUM 4.7 MEQ/L (3.5-5.1)
--- NOTE | 2017-05-20 16:58 | HHI.PR ---
Subjective Remarks No new complaints, UOP improving, latest potassium improving. Objective Vital Signs Date Time Temp Pulse Resp B/P (MAP) Pulse Ox O2 Delivery O2 Flow Rate FiO2 05/20/17 16:04 67 05/20/17 15:07 98.4 16 16 146/86 (106) 93 05/20/17 14:00 14 05/20/17 11:03 69 145/84 (104) 05/20/17 11:02 98.5 69 18 145/84 (104) 94 05/20/17 08:14 98.4 67 16 149/83 (105) 93 05/20/17 07:07 74 05/20/17 05:29 18 05/20/17 03:00 70 05/20/17 03:00 98.4 72 18 138/69 (92) 96 05/19/17 23:05 98.5 90 18 145/85 (105) 96 05/19/17 23:00 80 05/19/17 22:00 18 05/19/17 21:30 Nasal Cannula 2.00 05/19/17 19:00 88 05/19/17 18:09 85 20 130/78 (95) 96 05/19/17 17:50 98.2 96 20 147/78 (101) 97 I/O 05/19/17 05/19/17 05/19/17 05/20/17 05/20/17 05/20/17 07:00 15:00 23:00 07:00 15:00 23:00 Intake Total 240 ml 4350 ml 110 ml 1949 ml 725 ml Output Total 420 ml 110 ml 943 ml 290 ml Balance 240 ml 3930 ml 0 ml 1006 ml 435 ml Intake Oral 240 ml 880 ml IV Total 650 ml 110 ml 1069 ml 725 ml Other 3700 ml Output Urine Total 320 ml 110 ml 943 ml 290 ml Estimated Blood Loss 100 ml Result Diagram: 05/20/17 0442 05/20/17 1500 Imaging Renal duplex this morning good, good flows both renal arteries and vein Procedures ECHO pending Objective Remarks UOP increased, mostly over 100 cc/hr potassium down to 4.7 at 1500 today Cr slowly down Will stop fluid replacement, Medications and IVs Thymo dose 2 given today Assessment and Plan Assessment and Plan Hemodynamically last night, hyperkalemia treated with HD last night Another dose of Kayexalate 30 gms ordered for this morning Dr. Juarez is following repeat K for possible HD as needed. Patient runs a high K at baseline, but this is much higher for uncertain reason as no blood transfusions and no K containing meds Starting oral liquids for breakfast and lunch, may advance to solids for dinner if doing well IS meds today: Cont MMF 1000 bid SM taper with Thymo as pre-med Delaying tac due to slow graft function Gio Bradshaw MD May 20, 2017 16:58
[2017-05-20] MEDS ORDERED: TACROLIMUS 1 MG CAP PO ONE (18:00)
--- NOTE | 2017-05-20 18:18 | ECHRPT ---
Indication: post renal transplant/ RV CONCLUSIONS The left ventricular systolic function is mildly reduced with an estimated ejection fraction in the range of 45- 50%. Mild concentric left ventricular hypertrophy. [id number] mitral valve regurgitation. There is mild tricuspid valve regurgitation. BP: / HR: Rhythm: MEASUREMENTS (Male / Female) Normal Values Technical Quality:Fair 2D ECHO LV Diastolic Diameter PLAX 5.7 cm 4.2 - 5.9 / 3.9 - 5.3 cm LV Systolic Diameter PLAX 4.5 cm IVS Diastolic Thickness 1.4 cm 0.6 - 1.0 / 0.6 - 0.9 cm LVPW Diastolic Thickness 1.2 cm 0.6 - 1.0 / 0.6 - 0.9 cm LV Relative Wall Thickness 0.5 RV Internal Dim ED PLAX 3.5 cm M-MODE Aortic Root Diameter MM 2.8 cm LA Systolic Diameter MM 4.1 cm LA Ao Ratio MM 1.5 AV Cusp Separation MM 2.0 cm DOPPLER Mitral E Point Velocity 60.7 cm/s Mitral A Point Velocity 65.6 cm/s Mitral E to A Ratio 0.9 LV E' Lateral Velocity 11.4 cm/s Mitral E to LV E' Lateral Ratio 5.3 LV E' Septal Velocity 8.9 cm/s Mitral E to LV E' Septal Ratio 6.8 TR Peak Velocity 323.0 cm/s TR Peak Gradient 41.7 mmHg Right Atrial Pressure 10.0 mmHg Pulmonary Artery Systolic Pressu 51.7 mmHg Right Ventricular Systolic Press 51.7 mmHg FINDINGS LEFT VENTRICLE The left ventricular systolic function is mildly reduced with an estimated ejection fraction in the range of 45- 50%. Mild concentric left ventricular hypertrophy. Normal left ventricular size. RIGHT VENTRICLE Normal right ventricular size and systolic function. LEFT ATRIUM The left atrial size is upper limits of normal. RIGHT ATRIUM The right atrial size is normal. ATRIAL SEPTUM Normal atrial septal thickness without atrial level shunting by limited color doppler interrogation. AORTA The aortic root and proximal ascending aorta are normal in size on limited imaging. MITRAL VALVE Structurally normal mitral valve. Dhlvl-py-fuil mitral valve regurgitation. No mitral valve stenosis. AORTIC VALVE Trileaflet aortic valve. No aortic valve regurgitation. No aortic valve stenosis. TRICUSPID VALVE Structurally normal tricuspid valve. There is mild tricuspid valve regurgitation. The estimated pulmonary arterial pressure is 51.7 mmHg. PULMONARY VALVE No pulmonary valve regurgitation or stenosis. VESSELS The inferior vena cava is normal in size. PERICARDIUM No pericardial effusion. Rajendra Mckee DO (Electronically Signed) Final Date:20 May 2017 18:17
[2017-05-21] VITALS (21 sets, daily range): BP systolic 125–165; BP diastolic 67–94; PULSE 60–94; RESP 16–18; TEMP 97.4–98.4; O2SAT 92–97
[2017-05-21] MEDS: DEXT 5%-NACL 0.45% 1000 ML INJ 1,000 ML IV SCH (02:26)
[2017-05-21] MEDS: PCA - TOTAL MG MORPHINE DELIVERED PER SHIFT IV SCH (06:00)
[2017-05-21 06:04] LABS: AUTOMATED NEUTROPHIL # 6.7 TH/MM3 (1.8-7.7); BASOPHIL % 0.2 % (0.0-2.0); EOSINOPHIL % 0.2 % (0.0-4.0); HEMATOCRIT 37.8 % (39.0-51.0); LYMPH % 1.4 % (9.0-44.0); LYMPHOCYTE # 0.1 TH/MM3 (1.0-4.8); MEAN CELL VOLUME 96.7 FL (80.0-100.0); MEAN CORPUSCULAR HEMOGLOBIN 31.5 PG (27.0-34.0); MEAN CORPUSCULAR HGB CONC 32.5 % (32.0-36.0); MONO % 6.5 % (0.0-8.0); NEUT % 91.7 % (16.0-70.0); PLATELET COUNT 96 TH/MM3 (150-450); RED CELL DISTRIBUTION WIDTH 15.5 % (11.6-17.2); WHITE BLOOD COUNT 7.3 TH/MM3 (4.0-11.0)
[2017-05-21] MEDS: MYCOPHENOLATE MOFETIL 500 MG TAB PO SCH ×2 (06:18→17:49)
[2017-05-21] MEDS: TACROLIMUS 1 MG CAP PO SCH ×2 (06:19→17:49)
[2017-05-21 06:30] LABS: HEMO FLAGS AUTO DIFF
[2017-05-21 07:13] LABS: BICARBONATE 27.8 MEQ/L (21.0-32.0); POTASSIUM 3.7 MEQ/L (3.5-5.1)
[2017-05-21] MEDS ORDERED: oxyCODONE/ACETAMINOPHEN 5 MG/325 MG TAB PO PRN (08:00)
[2017-05-21] MEDS ORDERED: BISACODYL 10 MG SUPP RECTAL PRN (08:15)
[2017-05-21] MEDS: METOPROLOL TARTRATE 25 MG TAB PO SCH ×2 (08:26→20:54)
[2017-05-21] MEDS: DOCUSATE SODIUM 100 MG CAP PO SCH ×2 (08:27→21:00)
[2017-05-21] MEDS: NYSTATIN SUSP 500,000 U/5 ML CUP SWISH-SWAL SCH ×3 (08:27→20:54)
[2017-05-21] MEDS: ASPIRIN 81 MG CHEW TAB PO SCH (08:28)
[2017-05-21] MEDS: DOCUSATE SODIUM 50 MG/SENNA 8.6 MG TAB PO SCH ×2 (08:28→20:53)
[2017-05-21] MEDS: oxyCODONE/ACETAMINOPHEN 5 MG/325 MG TAB PO PRN ×2 (08:29→20:58)
--- NOTE | 2017-05-21 08:37 | HHI.PR ---
Subjective Remarks No new complaints, UOP very good with about 3 L last 24 hrs, no BM yet but positive flatus and on solid renal diet. Objective Vital Signs Date Time Temp Pulse Resp B/P (MAP) Pulse Ox O2 Delivery O2 Flow Rate FiO2 05/21/17 06:00 16 05/21/17 04:00 92 Room Air 05/21/17 04:00 97.8 66 16 145/76 (99) 92 05/21/17 04:00 63 05/21/17 00:00 73 18 148/81 (103) 94 05/21/17 00:00 94 Room Air 05/21/17 00:00 78 05/20/17 22:00 20 05/20/17 20:00 83 05/20/17 20:00 94 Room Air 05/20/17 20:00 97.6 80 18 146/85 (105) 94 05/20/17 19:29 96 05/20/17 18:03 135/81 (99) 05/20/17 17:17 94 05/20/17 17:00 70 05/20/17 16:04 67 05/20/17 15:07 98.4 16 16 146/86 (106) 93 05/20/17 14:00 14 05/20/17 11:03 69 145/84 (104) 05/20/17 11:02 98.5 69 18 145/84 (104) 94 I/O 05/20/17 05/20/17 05/20/17 05/21/17 05/21/17 05/21/17 07:00 15:00 23:00 07:00 15:00 23:00 Intake Total 110 ml 1949 ml 1625 ml 282 ml 40 ml Output Total 110 ml 943 ml 1180 ml 685 ml Balance 0 ml 1006 ml 445 ml -403 ml 40 ml Intake Oral 880 ml 480 ml IV Total 110 ml 1069 ml 1145 ml 282 ml 40 ml Output Urine Total 110 ml 943 ml 1180 ml 685 ml # Bowel Movements 0 Result Diagram: 05/21/17 0515 05/21/17 0515 Procedures ECHO with reasonable LVEF, RVSP up to 50, will continue slow diuresis back to baseline weight over the next week or so and recheck ECHO as outpatient unless he has symptoms of SOB here in hospital Objective Remarks UOP excellent with nearly 3 L yesterday potassium down to 3.7 today Cr also coming down nicely Medications and IVs IVF stopped Thymo dose 3 today - likely last dose platelets were slightly down, likely to Thymo starting oral lasix once a day for high RVSP offered patient dulc supp as no BM yet Assessment and Plan Assessment and Plan Hemodynamically stable, BP mildly elevated, but will hopefully drive diuresis Wound is clean and dry with nacho in place. No erythema Winter in place, still pink tinged urine Overall, renal graft function improving very nicely. Patient feels well. We started low dose metop as he was on propanolol at home Dr. Juarez will adjust BP meds as necessary On renal solid diet, can switch to regular diet with a few more days of good renal function IS meds today: Cont MMF 1000 bid SM taper with Thymo as pre-med Tac started at 4 mg bid check levels for goal 8 to 10 Lasix ordered 80 mg Tue and Tue, then 40 mg Tuesday QAM, will adjust as needed depending on UOP and weight the next few days CONCESSION CASHIER stopped and replaced with oral percocets 1 to 2 prn pain Q6hr Will remove winter on Tuesday. Nursing ordered placed to check PVR after 1st and 2nd voids. If no void in 4 hrs, then check PVR and straight catheter. If no void in 4 more hours, then replace winter. Phone numbers ([phone] [Leeann ] and [phone] [Dr. Allred]) can be called if any questions on surgical issues such as winter. Please ambulate in goddard TID today and OOB as much as possible Venkat Bradshaw Discussed Condition With Patient at bedside this morning Discharge Planning Possible discharge Tuesday or Tuesday depending on his ability to void, tacrolimus levels, and renal allograft function Physician Attestation I examined patient and discussed the above plan with patient and his nurse this morning. I clarified all electronic orders with his nurse this morning Gio Bradshaw MD May 21, 2017 08:37
[2017-05-21] MEDS: FLUTICASONE PROPIONATE 50 MCG/ACT 16 GM NASAL SPRAY NASAL SCH ×2 (08:52→21:03)
[2017-05-21] MEDS: SODIUM CHLORIDE 0.9% FLUSH 10 ML FLUSH IV FLUSH SCH ×2 (08:52→20:59)
[2017-05-21] MEDS ORDERED: FUROSEMIDE 80 MG TAB PO SCH (09:00)
[2017-05-21] MEDS ORDERED: ACETAMINOPHEN 325 MG TAB PO ONE (09:30)
[2017-05-21] MEDS ORDERED: diphenhydrAMINE HCL 50 MG CAP PO ONE (09:30)
[2017-05-21] MEDS ORDERED: methylPREDNISolone SOD SUCC 125 MG/2 ML VIAL IV PUSH ONE ×2 (09:30→10:00)
[2017-05-21] MEDS ORDERED: THYMOGLOBULIN ANAPYLAXIS KIT MISC XX PRN (09:30)
[2017-05-21] MEDS: FUROSEMIDE 80 MG TAB PO SCH (09:41)
[2017-05-21 09:43] LABS: PLATELET ESTIMATE SMEAR LOW (NORMAL); PLATELET MORPHOLOGY NORMAL (NORMAL); SCAN/DIFF AUTO DIFF CONFIRMED
[2017-05-21] MEDS ORDERED: SODIUM CHLORID 0.9% IV-CENTRAL ONE (10:00)
[2017-05-21] MEDS ORDERED: ANTITHYMOCYTE GLOB IV-CENTRAL ONE (10:00)
[2017-05-21] MEDS: PANTOPRAZOLE SOD 40 MG DELAYED RELEASE TAB PO SCH (10:23)
--- NOTE | 2017-05-21 16:17 | HHI.NPPN ---
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 Additional Remarks Patient seen in AM, alert, sitting on chair, not in distress. Review of Systems General Constitutional: Fatigue Cardiovascular Cardiac: JIN Objective Data Data 05/21/17 05/22/17 19:00 07:00 Intake Total 40 ml Output Total 495 ml Balance -455 ml IV Total 40 ml Output Urine Total 495 ml Vital Signs Date Time Temp Pulse Resp B/P (MAP) Pulse Ox O2 Delivery O2 Flow Rate FiO2 05/21/17 14:00 78 05/21/17 13:00 82 05/21/17 12:00 79 05/21/17 11:15 98.2 78 16 132/73 (92) 97 05/21/17 11:00 98.2 79 16 125/67 (86) 97 05/21/17 11:00 97 Room Air 05/21/17 10:00 83 05/21/17 09:30 16 05/21/17 09:00 94 05/21/17 08:00 80 05/21/17 08:00 97 Room Air 05/21/17 08:00 98.2 80 16 163/92 (115) 97 05/21/17 07:00 76 05/21/17 06:00 16 05/21/17 04:00 92 Room Air 05/21/17 04:00 97.8 66 16 145/76 (99) 92 05/21/17 04:00 63 05/21/17 00:00 73 18 148/81 (103) 94 05/21/17 00:00 94 Room Air 05/21/17 00:00 78 05/20/17 22:00 20 05/20/17 20:00 83 05/20/17 20:00 94 Room Air 05/20/17 20:00 97.6 80 18 146/85 (105) 94 05/20/17 19:29 96 05/20/17 18:03 135/81 (99) 05/20/17 17:17 94 05/20/17 17:00 70 -: 05/21/17 0515 05/21/17 0515 Physical Exam General Appearance: Well Developed, Well Nourished, No Acute Distress, Comfortable Neck Neck Exam: Neck Supple Pulmonary Resp Exam: Clear Bilaterally, Breath Sounds Equal Cardiology CV Exam: Regular, Normal Sinus Rhythm Gastrointestinal/Abdomen GI Exam: Soft, Bowel Sounds Present, Distended Genitourinary Exam: Sediment Integumentary Skin Exam: Clear Extremeties Extremities Exam: Trace Edema Neurologic Neuro Exam: Alert, Awake, Oriented, Sedated Psychiatric Psych Exam: Appropriate Responses Assessment/Plan Problem List: (1) Transplant recipient ICD Codes: Z94.89 - Other transplanted organ and tissue status Status: Acute Plan: he received SoluMedrol and Thymoglobulin continue with Thymoglobulin 3rd dose today Also started on Prograf and on CellCept continue to observe for recovery Urine out put is better. Creatinine is improving. K is normalized. Prograf level was low, just started, will follow the level. Follow the urine out put and BMP. Keep Barrios's for now as has hematuria. Zonia Das MD May 21, 2017 16:17
[2017-05-21 19:09] LABS: BICARBONATE 25.5 MEQ/L (21.0-32.0); POTASSIUM 3.7 MEQ/L (3.5-5.1)
[2017-05-21] MEDS: ZOLPIDEM TARTRATE 5 MG TAB PO PRN (23:42)
[2017-05-22] VITALS (34 sets, daily range): BP systolic 129–166; BP diastolic 68–91; PULSE 54–102; RESP 16–18; TEMP 97–98.9; O2SAT 95–98
[2017-05-22] MEDS: MYCOPHENOLATE MOFETIL 500 MG TAB PO SCH ×2 (06:12→18:07)
[2017-05-22] MEDS: TACROLIMUS 1 MG CAP PO SCH ×2 (06:13→21:28)
[2017-05-22 06:32] LABS: AUTOMATED NEUTROPHIL # 4.1 TH/MM3 (1.8-7.7); BASOPHIL % 0.1 % (0.0-2.0); EOSINOPHIL % 0.1 % (0.0-4.0); HEMATOCRIT 38.4 % (39.0-51.0); LYMPH % 2.5 % (9.0-44.0); LYMPHOCYTE # 0.1 TH/MM3 (1.0-4.8); MEAN CORPUSCULAR HGB CONC 32.3 % (32.0-36.0); MONO % 8.8 % (0.0-8.0); NEUT % 88.5 % (16.0-70.0); PLATELET COUNT 95 TH/MM3 (150-450); RED CELL DISTRIBUTION WIDTH 15.8 % (11.6-17.2); WHITE BLOOD COUNT 4.7 TH/MM3 (4.0-11.0)
[2017-05-22 06:46] LABS: BICARBONATE 28.6 MEQ/L (21.0-32.0); POTASSIUM 3.3 MEQ/L (3.5-5.1)
[2017-05-22 06:57] LABS: HEMO FLAGS AUTO DIFF
[2017-05-22 07:58] LABS: PLATELET ESTIMATE SMEAR LOW (NORMAL); PLATELET MORPHOLOGY NORMAL (NORMAL); SCAN/DIFF AUTO DIFF CONFIRMED
[2017-05-22] MEDS: DOCUSATE SODIUM 50 MG/SENNA 8.6 MG TAB PO SCH ×2 (08:01→21:00)
[2017-05-22] MEDS: DOCUSATE SODIUM 100 MG CAP PO SCH ×2 (08:01→21:00)
[2017-05-22] MEDS: PANTOPRAZOLE SOD 40 MG DELAYED RELEASE TAB PO SCH (08:02)
[2017-05-22] MEDS: METOPROLOL TARTRATE 25 MG TAB PO SCH ×2 (08:02→21:29)
[2017-05-22] MEDS: FUROSEMIDE 80 MG TAB PO SCH (08:02)
[2017-05-22] MEDS: NYSTATIN SUSP 500,000 U/5 ML CUP SWISH-SWAL SCH ×3 (08:02→21:28)
[2017-05-22] MEDS: SODIUM CHLORIDE 0.9% FLUSH 10 ML FLUSH IV FLUSH SCH ×2 (08:03→21:27)
[2017-05-22] MEDS ORDERED: POTASSIUM CHLORIDE 10 MEQ CONTROLLED RELEASE TAB PO ONE (09:00)
[2017-05-22] MEDS: FLUTICASONE PROPIONATE 50 MCG/ACT 16 GM NASAL SPRAY NASAL SCH ×2 (09:00→21:27)
[2017-05-22] MEDS: ASPIRIN 81 MG CHEW TAB PO SCH (09:00)
[2017-05-22] MEDS ORDERED: SOD PHOSPHATE/SOD BIPHOSPHATE (ADULT) ENEMA 133ML RECTAL ONE (09:00)
--- NOTE | 2017-05-22 09:12 | HHI.PR ---
Subjective Remarks Patient's chart reviewed. Blood pressure now trending up. Good graft function with Cr trending down and good UOP No bowel movement documented Objective Vital Signs Date Time Temp Pulse Resp B/P (MAP) Pulse Ox O2 Delivery O2 Flow Rate FiO2 05/22/17 08:28 98.3 86 18 166/91 (116) 96 05/22/17 08:28 94 Room Air 05/22/17 08:21 95 21 05/22/17 07:36 86 05/22/17 06:00 60 05/22/17 05:00 56 05/22/17 04:00 97.0 64 16 129/75 (93) 97 05/22/17 04:00 58 05/22/17 04:00 97 Room Air 05/22/17 03:00 54 05/22/17 02:01 58 145/77 (99) 05/22/17 02:00 58 05/22/17 01:05 61 135/68 (90) 05/22/17 01:00 60 05/22/17 00:00 68 05/21/17 23:30 94 Room Air 05/21/17 23:30 98.4 60 18 159/88 (111) 94 05/21/17 23:00 67 05/21/17 22:00 70 05/21/17 21:00 74 05/21/17 20:00 80 05/21/17 20:00 165/94 (117) 05/21/17 20:00 97.9 72 16 165/94 (117) 94 05/21/17 19:00 94 Room Air 05/21/17 19:00 74 05/21/17 18:00 87 05/21/17 17:00 79 05/21/17 16:00 91 05/21/17 15:00 97.4 81 16 159/94 (115) 94 05/21/17 15:00 94 Room Air 05/21/17 14:00 78 05/21/17 13:00 82 05/21/17 12:00 79 05/21/17 11:15 98.2 78 16 132/73 (92) 97 05/21/17 11:00 98.2 79 16 125/67 (86) 97 05/21/17 11:00 97 Room Air 05/21/17 10:00 83 05/21/17 09:30 16 I/O 05/21/17 05/21/17 05/21/17 05/22/17 05/22/17 05/22/17 07:00 15:00 23:00 07:00 15:00 23:00 Intake Total 322 ml 40 ml 2050 ml 300 ml 240 ml Output Total 685 ml 1010 ml 1475 ml 845 ml 75 ml Balance -363 ml -970 ml 575 ml -545 ml 165 ml Intake Oral 1550 ml 300 ml 240 ml IV Total 322 ml 40 ml 500 ml Output Urine Total 685 ml 1010 ml 1475 ml 845 ml 75 ml # Bowel Movements 0 0 0 CBC Diagram 05/22/17 05:30 BMP Diagram 05/21/17 18:11 Calcium Level 9.3 # 05/22/17 05:30 Calcium Level 9.0, Phosphorus Level 4.7 #, Magnesium Level 2.0 Result Diagram: 05/22/17 0530 05/22/17 0530 Procedures ECHO with reasonable LVEF, RVSP up to 50, will continue slow diuresis back to baseline weight over the next week or so and recheck ECHO as outpatient unless he has symptoms of SOB here in hospital Assessment and Plan Assessment and Plan Per chart review, patient seems to be doing well overall with good graft function. HIs Cr continues to decrease and he has good uop. Patient is net neg 900 today with weight slightly down as well. His blood pressure is trending up. Potassium slightly low today Patient has not had a bowel movement yet. Plan: -start norvasc 5 mg daily, first dose now -continue metoprolol 12.5 mg PO bid -give potassium chloride 40 meq PO once now -change diet to regular diet -give fleets enema. I will have nurse call me to confirm BM later today -winter removal as ordered by Dr. Bradshaw with PVR checks. -thymo dosing complete -follow up FK level later today -continue steroid taper with prednisone 80 mg PO today -anticipate patient will be able to be discharged Tuesday as planned if he is able to void and have BM -I will call nursing now to confirm orders and plans above and confirm nursing has my contact number -I will communicate the above plan with sales account coordinator, Marilia Og DO May 22, 2017 09:12
[2017-05-22] MEDS ORDERED: BISACODYL EC 5 MG TABEC PO PRN (13:15)
[2017-05-22] MEDS ORDERED: BISACODYL 10 MG SUPP RECTAL PRN (13:15)
--- NOTE | 2017-05-22 15:01 | HHI.NPPN ---
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 Additional Remarks Patient is alert, just had BM, no SOB, passing the urine. Review of Systems General Constitutional: Fatigue Cardiovascular Cardiac: JIN Objective Data Data 05/22/17 05/23/17 19:00 07:00 Intake Total 720 ml Output Total 478 ml Balance 242 ml Intake Oral 720 ml Output Urine Total 475 ml Stool Total 3 ml Bladder Scan Volume Amount 72 ml Vital Signs Date Time Temp Pulse Resp B/P (MAP) Pulse Ox O2 Delivery O2 Flow Rate FiO2 05/22/17 13:51 81 05/22/17 12:00 79 05/22/17 11:31 98.3 77 16 133/75 (94) 98 05/22/17 11:02 95 Room Air 05/22/17 11:02 77 05/22/17 11:00 77 05/22/17 10:00 82 05/22/17 09:59 98 18 134/75 (94) 96 05/22/17 09:00 79 05/22/17 08:28 98.3 86 18 166/91 (116) 96 05/22/17 08:28 94 Room Air 05/22/17 08:21 95 21 05/22/17 08:00 83 05/22/17 07:36 86 05/22/17 06:00 60 05/22/17 05:00 56 05/22/17 04:00 97.0 64 16 129/75 (93) 97 05/22/17 04:00 58 05/22/17 04:00 97 Room Air 05/22/17 03:00 54 05/22/17 02:01 58 145/77 (99) 05/22/17 02:00 58 05/22/17 01:05 61 135/68 (90) 05/22/17 01:00 60 05/22/17 00:00 68 05/21/17 23:30 94 Room Air 05/21/17 23:30 98.4 60 18 159/88 (111) 94 05/21/17 23:00 67 05/21/17 22:00 70 05/21/17 21:00 74 05/21/17 20:00 80 05/21/17 20:00 165/94 (117) 05/21/17 20:00 97.9 72 16 165/94 (117) 94 05/21/17 19:00 94 Room Air 05/21/17 19:00 74 05/21/17 18:00 87 05/21/17 17:00 79 05/21/17 16:00 91 05/21/17 15:00 97.4 81 16 159/94 (115) 94 05/21/17 15:00 94 Room Air -: 05/22/17 0530 05/22/17 0530 Physical Exam General Appearance: Well Developed, Well Nourished, No Acute Distress, Comfortable Neck Neck Exam: Neck Supple Pulmonary Resp Exam: Clear Bilaterally, Breath Sounds Equal Cardiology CV Exam: Regular, Normal Sinus Rhythm Gastrointestinal/Abdomen GI Exam: Soft, Bowel Sounds Present, Distended Genitourinary Exam: Sediment Integumentary Skin Exam: Clear Extremeties Extremities Exam: Trace Edema Neurologic Neuro Exam: Alert, Awake, Oriented, Sedated Psychiatric Psych Exam: Appropriate Responses Assessment/Plan Problem List: (1) Transplant recipient ICD Codes: Z94.89 - Other transplanted organ and tissue status Status: Acute Plan: he received SoluMedrol and Thymoglobulin continue with Thymoglobulin 3 doses given total. Also started on Prograf and on CellCept continue to observe for recovery Urine out put is better. Creatinine is improving. K was 3.3 , and replaced. Prograf level is 3.7. Start Prednisone 80 mg daily. Continue Prograf, encourage oral intake. Follow the urine out put and BMP. Dr. Juarez will follow from AM. Zonia Das MD May 22, 2017 15:01
[2017-05-22] MEDS: predniSONE 20 MG TAB PO SCH (16:43)
[2017-05-22] MEDS: amLODIPine BESYLATE 5 MG TAB PO SCH (16:43)
[2017-05-22] MEDS: TACROLIMUS 5 MG CAP PO SCH (21:28)
[2017-05-22] MEDS: oxyCODONE/ACETAMINOPHEN 5 MG/325 MG TAB PO PRN (21:31)
[2017-05-22] MEDS: ZOLPIDEM TARTRATE 5 MG TAB PO PRN (22:20)
[2017-05-23] VITALS (16 sets, daily range): BP systolic 149–166; BP diastolic 82–91; PULSE 52–86; RESP 16–18; TEMP 97.6–98; O2SAT 97–98
[2017-05-23 05:36] LABS: HEMATOCRIT 38.1 % (39.0-51.0); MEAN CELL VOLUME 95.9 FL (80.0-100.0); MEAN CORPUSCULAR HEMOGLOBIN 30.7 PG (27.0-34.0); PLATELET COUNT 93 TH/MM3 (150-450); RED BLOOD COUNT 3.97 MIL/MM3 (4.50-5.90); RED CELL DISTRIBUTION WIDTH 15.7 % (11.6-17.2)
[2017-05-23 05:38] LABS: REVIEW FLAG FINAL
[2017-05-23] MEDS: MYCOPHENOLATE MOFETIL 500 MG TAB PO SCH (05:46)
[2017-05-23 05:59] LABS: POTASSIUM 3.9 MEQ/L (3.5-5.1)
--- NOTE | 2017-05-23 08:24 | HHI.DS ---
Discharge Summary Admission Date May 18, 2017 at 17:39 Discharge Date: May 23, 2017 Admitting Diagnosis ESRD Procedures ECHO with reasonable LVEF, RVSP up to 50, will continue slow diuresis back to baseline weight over the next week or so and recheck ECHO as outpatient unless he has symptoms of SOB here in hospital Brief History Mr. Gonzales is POD #4 from cadaveric kidney transplant with routine post-op course. He is tolerating diet, good urine output post winter removal (low PVRs) and ambulating. labs stable and/or improving. Immunosuppression as per protocol. By chart review, he is ready for discharge. Will await transplant nephrologies bedside assessment. CBC/BMP: 05/23/17 0525 05/23/17 0525 Significant Findings Laboratory Tests Test 05/20/17 15:00 05/21/17 05:15 05/21/17 18:11 05/22/17 05:30 Blood Urea Nitrogen 49 MG/DL (7-18) 57 MG/DL (7-18) 60 MG/DL (7-18) 59 MG/DL (7-18) Creatinine 9.09 MG/DL (0.60-1.30) 6.70 MG/DL (0.60-1.30) 5.12 MG/DL (0.60-1.30) 4.12 MG/DL (0.60-1.30) Random Glucose 151 MG/DL (74-106) 114 MG/DL (74-106) 154 MG/DL (74-106) Sodium Level 135 MEQ/L (136-145) Estimat Glomerular Filtration Rate 6 ML/MIN (>89) 9 ML/MIN (>89) 12 ML/MIN (>89) 16 ML/MIN (>89) Red Blood Count 3.90 MIL/MM3 (4.50-5.90) 4.00 MIL/MM3 (4.50-5.90) Hemoglobin 12.3 GM/DL (13.0-17.0) 12.4 GM/DL (13.0-17.0) Hematocrit 37.8 % (39.0-51.0) 38.4 % (39.0-51.0) Platelet Count 96 TH/MM3 (150-450) 95 TH/MM3 (150-450) Neutrophils (%) (Auto) 91.7 % (16.0-70.0) 88.5 % (16.0-70.0) Lymphocytes (%) (Auto) 1.4 % (9.0-44.0) 2.5 % (9.0-44.0) Lymphocytes # (Auto) 0.1 TH/MM3 (1.0-4.8) 0.1 TH/MM3 (1.0-4.8) Platelet Estimate LOW (NORMAL) LOW (NORMAL) Calcium Level 8.4 MG/DL (8.5-10.1) Phosphorus Level 7.0 MG/DL (2.5-4.9) Tacrolimus (Prograf) Level 2.3 NG/ML (5.0-20.0) 3.7 NG/ML (5.0-20.0) Monocytes (%) (Auto) 8.8 % (0.0-8.0) Potassium Level 3.3 MEQ/L (3.5-5.1) Test 05/23/17 05:25 Red Blood Count 3.97 MIL/MM3 (4.50-5.90) Hemoglobin 12.2 GM/DL (13.0-17.0) Hematocrit 38.1 % (39.0-51.0) Platelet Count 93 TH/MM3 (150-450) Blood Urea Nitrogen 53 MG/DL (7-18) Creatinine 2.49 MG/DL (0.60-1.30) Random Glucose 132 MG/DL (74-106) Estimat Glomerular Filtration Rate 28 ML/MIN (>89) Discharge Instructions DIET: Follow Instructions for: As Tolerated, No Restrictions, Heart Healthy Diet Additional Information follow up transplant clinic this May 26. Abdi Viveros MD May 23, 2017 08:24
[2017-05-23] MEDS ORDERED: FUROSEMIDE 40 MG TAB PO SCH ×2 (09:00)
[2017-05-23] MEDS: DOCUSATE SODIUM 50 MG/SENNA 8.6 MG TAB PO SCH (09:00)
[2017-05-23] MEDS: DOCUSATE SODIUM 100 MG CAP PO SCH (09:00)
[2017-05-23] MEDS: amLODIPine BESYLATE 5 MG TAB PO SCH (09:21)
[2017-05-23] MEDS: SULFAMETHOXAZOLE-TRIMETHOPRIM DS 800-160 MG TAB PO SCH (09:21)
[2017-05-23] MEDS: PANTOPRAZOLE SOD 40 MG DELAYED RELEASE TAB PO SCH (09:21)
[2017-05-23] MEDS: predniSONE 20 MG TAB PO SCH (09:22)
[2017-05-23] MEDS: TACROLIMUS 5 MG CAP PO SCH (09:22)
[2017-05-23] MEDS: TACROLIMUS 1 MG CAP PO SCH (09:23)
[2017-05-23] MEDS: NYSTATIN SUSP 500,000 U/5 ML CUP SWISH-SWAL SCH ×2 (09:23→13:29)
[2017-05-23] MEDS: ASPIRIN 81 MG CHEW TAB PO SCH (09:23)
[2017-05-23] MEDS: METOPROLOL TARTRATE 25 MG TAB PO SCH (09:24)
[2017-05-23] MEDS: SODIUM CHLORIDE 0.9% FLUSH 10 ML FLUSH IV FLUSH SCH (09:26)
[2017-05-23] MEDS: FLUTICASONE PROPIONATE 50 MCG/ACT 16 GM NASAL SPRAY NASAL SCH (09:26)
[2017-05-23] MEDS ORDERED: MYCO500 PO (09:43)
[2017-05-23] MEDS ORDERED: AMLO5 PO (09:43)
[2017-05-23] MEDS ORDERED: PRED20 PO (09:43)
[2017-05-23] MEDS ORDERED: FURO40TA PO (09:43)
[2017-05-23] MEDS ORDERED: NYST1000 SWISH-SWAL (09:43)
[2017-05-23] MEDS ORDERED: OXYC1TAB63 PO (09:43)
[2017-05-23] MEDS ORDERED: OXYB5TAB10 PO (09:43)
[2017-05-23] MEDS ORDERED: METO25TA3 PO (09:43)
[2017-05-23] MEDS ORDERED: VALG450 PO (09:43)
[2017-05-23] MEDS ORDERED: TACR1 PO (09:43)
[2017-05-23] MEDS ORDERED: SULF1TAB23 PO (09:43)
[2017-05-23] MEDS ORDERED: TACR5 PO (09:43)
--- NOTE | 2017-05-23 09:46 | HHI.NPPN ---
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 Additional Remarks Patient is alert, no SOB, passing the urine. Review of Systems General Constitutional: Fatigue Cardiovascular Cardiac: JIN Objective Data Data Vital Signs Date Time Temp Pulse Resp B/P (MAP) Pulse Ox O2 Delivery O2 Flow Rate FiO2 05/23/17 08:19 97.6 58 18 165/84 (111) 98 05/23/17 06:00 52 05/23/17 05:00 86 05/23/17 04:00 74 05/23/17 04:00 97 Room Air 05/23/17 04:00 57 16 149/82 (104) 97 05/23/17 03:00 54 05/23/17 02:00 54 05/23/17 01:00 54 05/23/17 00:00 60 05/22/17 23:17 97 Room Air 05/22/17 23:16 97.7 66 16 148/87 (107) 97 05/22/17 23:00 62 05/22/17 22:00 66 05/22/17 21:00 76 05/22/17 20:00 102 05/22/17 19:30 98.9 73 16 159/90 (113) 97 05/22/17 19:30 97 Room Air 05/22/17 19:00 75 05/22/17 18:15 71 05/22/17 17:01 71 05/22/17 16:40 62 05/22/17 16:39 98.4 62 16 139/70 (93) 95 05/22/17 15:53 78 05/22/17 15:18 95 Room Air 05/22/17 15:12 92 05/22/17 13:51 81 05/22/17 12:00 79 05/22/17 11:31 98.3 77 16 133/75 (94) 98 05/22/17 11:02 95 Room Air 05/22/17 11:02 77 05/22/17 11:00 77 05/22/17 10:00 82 05/22/17 09:59 98 18 134/75 (94) 96 -: 05/23/17 0525 05/23/17 0525 Physical Exam General Appearance: Well Developed, Well Nourished, No Acute Distress, Comfortable Neck Neck Exam: Neck Supple Pulmonary Resp Exam: Clear Bilaterally, Breath Sounds Equal Cardiology CV Exam: Regular, Normal Sinus Rhythm Gastrointestinal/Abdomen GI Exam: Soft, Bowel Sounds Present, Distended GI Remarks incision clean Genitourinary Exam: Sediment Remarks blood tinged urine Integumentary Skin Exam: Clear Extremeties Extremities Exam: Trace Edema Neurologic Neuro Exam: Alert, Awake, Oriented, Sedated Psychiatric Psych Exam: Appropriate Responses Assessment/Plan Problem List: (1) Transplant recipient ICD Codes: Z94.89 - Other transplanted organ and tissue status Status: Acute Plan: he received SoluMedrol and Thymoglobulin continue with Thymoglobulin 3 doses given total. Also started on Prograf and on CellCept continue to observe for recovery Urine out put is better. Creatinine is improving. K was 3.3 , and replaced. Prograf level is 3.9. Start Prednisone 80 mg daily. Continue Prograf, encourage oral intake. Follow the urine out put and BMP. doing well agree with dc Cr 2.4 Gilmer Juarez MD May 23, 2017 09:46
[2017-05-23] MEDS ORDERED: K-PHTAB PO (09:52)
--- NOTE | 2017-05-23 14:19 | PHATRASOAP ---
Date/Time: 05/20/17 0800 Pharmacist daily assessment of kidney transplant patient: O: Ht: 6 ft 1in Wt:125.5 kg Allergies: NKA A: Vitals: BP =140s/80s-70s, HR = 80s Electrolytes: Na= 135, K=5.2, Ca=8.5, albumin ON 05/20=4.2, Phosphorus=6.1, Mg=1.9 SCR= 10.29(trending down from 12.27 on 05/19) WBC=11.2 MT=069 [id number] BM = None Hospital Medications: Thymoglobulin 150mg IV on 05/19 AND 180MG ON 05/20 total received = 290mg = 2.6mg/kg) Cellcept 1000 mg po bid Insulin scale Accuchecks ACHS Nystatin liquid 5ml TID Valganciclovir 900mg PO daily Bactrim 800/160 mg TIW Morphine SWITCHBOARD OPERATOR for pain control Home medication: PRAVASTATIN 40MG HS GAPAPENTIN 200MG PO 4 TIMES A WEEK AND 500MG THREE TIMES A WEEK PROPRANALOL 10MG PO BID Melatonin 5mg po hs -Patient had received 2 doses of Thymoglobulin with total dose to date 2.6mg/kg, might consider a third dose of thymoglobulin to complete the induction phase. -Serum creatinine is trending down -if patient tolerated po, consider switching morphine SWITCHBOARD OPERATOR to Percocet PO -Blood glucose elevated, continue to monitor blood glucose level while on solumedrol for induction phase - Potassium level is elevated, might respond to potassium binder if no HD is planned -Ambulating will assist better graft function and improved UOP P: -Continue induction phase with Thymoglobulin -Consider discontinuing morphine SWITCHBOARD OPERATOR and starting Percocet 5/325mg q6h PRN -Continue to monitor blood glucose level while on solumedrol for induction phase -Consider Kayexalate 30gm PO X1 if no HD is planned -Might consider starting Tacrolimus -Encourage ambulating Pharmacist: Melina WisemanD Signature on file
--- NOTE | 2017-05-23 14:21 | PHATRANEDU ---
Date/Time: 05/23/17 8202 Pharmacist Patient education: * Education on medication compliance: Counseled patient on the crucial importance of compliance with all his medication especially his anti-rejection medication. Educated patient on the different frequency of his different medication and how to take his medication in regards to meals to minimize side effects and maximize benefits. * Education on medication side effects: Counseled on various side effects of his anti rejection and anti infective medications: Educated patient on the tendency of anti rejection medications to increase his blood pressure and blood sugars, educated patient to continue to monitor blood pressure and notify physician if he noticed increase in blood pressure above his normal value. Educated patients on side effects associated with Tacrolimus, Mycophenolate Mofetil and Prednisone. Moreover educated patient of side effects of Bactrim, Valganciclovir and Nystatin. Educated patient on the action plan needed when any side effects occurs. * Education on signs and symptoms of rejection: Educated patient on different signs and symptoms of rejection that include: -Decreased urine output. -A temperature above 100* F (37.8* C). -Tenderness in the area of your new kidney. -Bloody or foul smelling urine. -Flu-like feelings. -Weight gain (more than 5 pounds in two days). Educated patient on signs and symptoms of infection that include: -A fever above 100* F (37.8* C). -Drainage or bad odor of drainage from your surgical scar. -Burning when you pass your urine. -A cold or cough that will not go away. -Flu-like feelings. * Action plan needed in situation of rejection, infection or medications side effects: Educated patient on need to contact his physician if he noticed any of the above symptoms. Educated patient to follow with his physician on time for labs and follow ups. Pharmacist: Melina Jeffers PharmD Signature on file
== END 2017-05-23 14:10 | disposition home or self-care (01) | DRG 652 ==
LOC: HCIN 17:39
PROVIDERS: ADMIT Surgery; ATTEND Surgery
PROC: 0TY00Z0 Transplantation of Right Kidney, Allogeneic, Open Approach (ICD-10-PCS; principal; 2017-05-18)
PROC: 0T760DZ Dilation of Right Ureter with Intraluminal Device, Open Approach (ICD-10-PCS; 2017-05-18)
DX: N18.6 End stage renal disease (principal); I27.2 Other secondary pulmonary hypertension; Q87.81 Alport syndrome; E87.5 Hyperkalemia; E78.5 Hyperlipidemia, unspecified; I10 Essential (primary) hypertension; N32.89 Other specified disorders of bladder; G47.33 Obstructive sleep apnea (adult) (pediatric); R31.9 Hematuria, unspecified; Z87.891 Personal history of nicotine dependence; Z99.2 Dependence on renal dialysis
CPT/HCPCS: 71010; 71020; 76776; 80048; 80053; 80197; 82948; 83735; 84100; 84132; 85025; 85027; 85610; 85730; 86850; 86900; 86901; 86920; 90935; 93005; 93306; 94150; 94664; C2617; J0610; J0690; J1200; J1265; J1644; J1720; J1815; J1940; J2150; J2175; J2270; J2405; J2710; J2930; J3010; J7030; J7040; J7507; J7511; J7512; J7517; J7613; P9045; Q0163